=== PATIENT | female | born 1945 | race Caucasian/White ===

== ENCOUNTER → 2020-07-11 13:25 | Outpatient (BNVA) | payer OTHER, SELFPAY | PROVIDERS: PCP Internal Medicine; Visit Provider Urology | DX: N39.0 Urinary tract infection, site not specified (principal) | CPT/HCPCS: 99213 ==

== ENCOUNTER → 2022-09-09 09:51 | Outpatient (BNVA) | payer OTHER, SELFPAY | PROVIDERS: PCP Internal Medicine; Visit Provider Nurse Practitioner Family | DX: N39.0 Urinary tract infection, site not specified (principal) | CPT/HCPCS: 51798 ==

== ENCOUNTER 2023-08-24 10:19 | Outpatient (REF) | payer OTHER, SELFPAY ==
--- NOTE | ~2023-08-24 | US_ITS ---
EXAMINATION: US RETROPERITONEAL COMPLETE (RENAL) CLINICAL INFORMATION: Urinary tract infection, site not specified. COMPARISON: None available. TECHNIQUE: Real-time imaging of the kidneys and bladder. Limited visualization due to bowel gas. FINDINGS: RIGHT KIDNEY: 11.0 x 4.6 x 6.0 cm (SAG x AP x TRV). No hydronephrosis. No renal calculi. Renal cortical thickness is normal. Limited visualization. Right lower pole 1.9 cm parapelvic cyst with benign features. There is no indication for follow-up imaging. Multiple additional smaller parapelvic cysts. LEFT KIDNEY: 11.2 x 5.3 x 4.9 cm (SAG x AP x TRV). Multiple scattered punctate echogenic left renal foci, possibly representing vascular artifact or tiny nonobstructive calculi. No hydronephrosis. Left mid pole 2.5 x 1.8 x 2.2 cm parapelvic cyst with mural calcification. Left lower pole 2.1 cm parapelvic cyst with benign features. There is no indication for follow-up imaging. Multiple additional left renal cysts, multiple of which are parapelvic. BLADDER: Well distended and normal. Bilateral ureteral jets are demonstrated. Prevoid bladder volume is 354 mL. Postvoid bladder volume is 88.7 mL. US/US retroperitoneal comp IMPRESSION: Multiple scattered punctate echogenic left renal foci, possibly representing vascular artifact or tiny nonobstructive calculi. No hydronephrosis. Left renal mid pole 2.5 cm complicated parapelvic cyst. Multiple additional bilateral parapelvic cysts. CT scan recommended for better characterization.
== END 2023-08-24 10:20 | disposition home or self-care (01) ==
LOC: HO.US 10:19
PROVIDERS: PCP Internal Medicine; Visit Provider Nurse Practitioner Family
DX: N39.0 Urinary tract infection, site not specified (principal)
CPT/HCPCS: 76770

== ENCOUNTER 2023-08-31 10:15 | Outpatient (AMB) | payer OTHER, SELFPAY ==
--- NOTE | 2023-08-31 10:37 | A.OFFVIS_ITS ---
Intake Intake Visit Reasons: 1yr follow up/US(set) Intake Note: Patient presents for follow up recurrent uti/ultrasound (imaging 08/24/23) Urology Medications: estradiol cream Blood thinners: none Post void residual :? 126ml's Bit Grinder Required: No Accompanied by: Self / Same As Patient Allergies penicillin V Allergy (Unknown, Verified 08/31/23 23:46) Unknown Medication List - Last Reconciled 08/31/23 by FABIAN Witt-VALENTE atorvastatin 40 mg PO DAILY ciprofloxacin HCl 500 mg PO BID 5 days estradiol 0.01%(0.1mg/gram) pea-sized to urethra 2 times a week; 30 days flu vac 2020 [id number](PF) 60 mcg (15 mcg x 4)/0.5 mL IM levothyroxine 88 mcg PO DAILY nitrofurantoin monohyd/m-cryst 100 mg (Macrobid) 100 mg PO BID 7 days pneumoc 13-balta conj-dip cr(PF) mL IM tobramycin-dexamethasone 0.3-0.1 % (TobraDex) ophthalmic (eye) BEDTIME PRN tretinoin 0.05% topical BEDTIME PRN HPI HPI Comments History of Present Illness Details Lynn is a pleasent 78 year old female who is a patient of Dr. Allred. She has a past medical history of pneumonia, osteopenia, recurrent urinary tract infections, hypothyroidism, GERD, vaginal atrophy, and incomplete bladder emptying. She presents to the office today for a follow-up of her recurrent UTIs and incomplete bladder emptying. Patient reports to be doing and feeling well. She mentions she is getting ready for her trip to [place] on 09/11 where she will stay the next few months. Recent retroperitoneal ultrasound results reviewed with the patient today. Right kidney with no hydronephrosis or renal calculi. Right lower pole 1.9 cm peripelvic cyst with benign features. There is no indication for follow-up imaging per radiology report. Multiple additional smaller peripelvic cysts. Left kidney with multiple scattered punctate echogenic foci possibly representing vascular artifact or tiny nonobstructing calculi. No hydronephrosis. Left mid pole 2.5 x 1.8 x 2.2 cm parapelvic cyst with mural calcification. Left lower pole 2.1 cm parapelvic cyst with benign features. There is no indication for follow-up imaging. Multiple additional left renal cysts, multiple of which are parapelvic. The bladder is well distended and normal. Bilateral ureteral jets are demonstrated. Pre void bladder volume is approximately 350 mL. Postvoid bladder volume is approximately [address] recommendation for better characterization of left renal mid pole 2.5 cm complicated peripelvic cyst noted on imaging. Discussed at length causes and affects of incomplete bladder emptying. She currently denies any bothersome urinary issues or concerns. She denies urinary urgency, urinary frequency, incontinence, hematuria, dysuria, foul smelling urine, changes to urinary stream, flank pain, fever, and or chills. She does report episodes of nocturia. She reports some nights she only gets up 1 time per night to void other times up to 3 times per night. However, she does not find this bothersome at this time. She is happy with her current voiding parameters. In office urinalysis results reviewed with the patient today. PVR 126 mL. Discussed low-dose terazosin for incomplete bladder emptying. However patient discusses at length having had severe dizziness and chest discomfort when previously trialing low-dose terazosin for incomplete bladder emptying in the past. Discussed lifestyle modifications with double voiding to assist with incomplete bladder emptying. She reports compliance with Estrace cream. She reports since her last office visit here approximately 1 year ago she had 1 urinary tract infection. She discusses at length her 's medical issues with his lungs and elevated PSA. She otherwise offers no issues or concerns at this time. [facility] Medical History (Updated 08/31/23 @ 11:21 by FABIAN Witt-VALENTE) Pneumonia Osteopenia UTI (urinary tract infection) Hypothyroidism GERD (gastroesophageal reflux disease) Vaginal atrophy Incomplete emptying of bladder Recurrent UTI Surgical History History of surgery Review of Systems Const All systems reviewed & are unremarkable except as noted in HPI and below Eyes Reports no additional complaints ENT Reports no additional complaints Card Reports no additional complaints Resp Reports as per HPI GI Reports as per HPI Reports as per HPI Musc Reports as per HPI Neuro Reports no additional complaints Psych Reports no additional complaints Endo Reports no additional complaints Altaf/Lymph Reports no additional complaints Aller/Immun Reports no additional complaints Physical Exam Const General: cooperative, healthy appearing, comfortable, alert, awake and well groomed Nutritional Appearance: average body habitus and well nourished Orientation/consciousness: patient oriented x3 Limitations: no limitations HEENT Head: Yes normocephalic Ears: hearing grossly normal bilaterally Eyes General: appearance normal, both eyes and all related structures Neck Neck: Yes normal visual inspection Chest Chest palpation & inspection: normal inspection of the chest Resp Effort & Inspection: normal respiratory effort and no cough Cardio Jugular venous distension: no JVD Neuro General: patient oriented x3, gait normal and moves all extremities Cognition (Neuro): normal cognition Gait exam (Neuro): Normal gait present Psych Appearance: grossly normal and well kempt Mental Status: mental status grossly normal Speech and movement: Normal speech and movement present Affect: normal affect Attitude: cooperative Thought process: Normal thought process present Thought content: Normal thought content present Insight: Good insight present (Psych) Judgement: Good judgement present (Psych) Office Procedures Post Void Residual Post Residual Void Post Void Residual (PVR): 126 [id number] Void Residual by ultrasound Results AMB Urinalysis, Automated UA Leukoctes 0 Nils/uL Last Edit by Chrissy[employer]ya [employer]harma Sherry on 08/31/23 11:06 UA Nitrite Negative Last Edit by [employer] on 08/31/23 11:06 UA Urobilinogen 0.2 mg/dL Last Edit by [employer] on 08/31/23 11:06 UA Protein 0 mg/dL Last Edit by [employer] on 08/31/23 11:06 UA pH 7.0 Last Edit by [employer] on 08/31/23 11:06 UA Blood 0 Rico/uL Last Edit by [employer] on 08/31/23 11:06 UA Specific Holland 1.010 Last Edit by [employer] on 08/31/23 11:06 UA Ketone Negative Last Edit by [employer] on 08/31/23 11:06 UA Bilirubin 0 mg/dL Last Edit by [employer] on 08/31/23 11:06 UA Glucose 0 mg/dL Last Edit by [employer] on 08/31/23 11:06 Results Reviewed Results Reviewed: Laboratory Last Values Urine pH (Auto) 7.0 08/31/23 11:05 Specific Holland (Auto) 1.010 08/31/23 11:05 Urine Protein (Auto) 0 mg/dL 08/31/23 11:05 Glucose (UA)(Auto) 0 mg/dL 08/31/23 11:05 Urine Ketones (Auto) Negative 08/31/23 11:05 Urine Blood (Auto) 0 Rico/uL 08/31/23 11:05 Urine Nitrite (Auto) Negative 08/31/23 11:05 Urine Bilirubin (Auto) 0 mg/dL 08/31/23 11:05 Urine Urobilinogen (Auto) 0.2 mg/dL 08/31/23 11:05 Leukocyte Esterase (Auto) 0 Nils/uL 08/31/23 11:05 Date of Service: 08/24/23 EXAMINATION: US RETROPERITONEAL COMPLETE (RENAL) FINDINGS: RIGHT KIDNEY: 11.0 x 4.6 x 6.0 cm (SAG x AP x TRV). No hydronephrosis. No renal calculi. Renal cortical thickness is normal. Limited visualization. Right lower pole 1.9 cm parapelvic cyst with benign features. There is no indication for follow-up imaging. Multiple additional smaller parapelvic cysts. LEFT KIDNEY: 11.2 x 5.3 x 4.9 cm (SAG x AP x TRV). Multiple scattered punctate echogenic left renal foci, possibly representing vascular artifact or tiny nonobstructive calculi. No hydronephrosis. Left mid pole 2.5 x 1.8 x 2.2 cm parapelvic cyst with mural calcification. Left lower pole 2.1 cm parapelvic cyst with benign features. There is no indication for follow-up imaging. Multiple additional left renal cysts, multiple of which are parapelvic. BLADDER: Well distended and normal. Bilateral ureteral jets are demonstrated. Prevoid bladder volume is 354 mL. Postvoid bladder volume is 88.7 mL. US/US retroperitoneal comp IMPRESSION: Multiple scattered punctate echogenic left renal foci, possibly representing vascular artifact or tiny nonobstructive calculi. No hydronephrosis. Left renal mid pole 2.5 cm complicated parapelvic cyst. Multiple additional bilateral parapelvic cysts. CT scan recommended for better characterization. Assessment & Plan Assessment & Plan (1) Recurrent UTI (urinary tract infection): Code(s): N39.0 - Urinary tract infection, site not specified (2) Complex renal cyst: Code(s): N28.1 - Cyst of kidney, acquired (3) Incomplete emptying of bladder: Code(s): R33.9 - Retention of urine, unspecified Plan In office urinalysis results reviewed with the patient today; as noted above. PVR 126 mL. Discussed at length causes and affects of incomplete bladder emptying. Discussed recent retroperitoneal ultrasound results with the patient today; as noted above. Discussed obtaining CT urogram for further assessment evaluation; patient with upcoming trip to [place] will attempt to obtain prior to departure otherwise will obtain late December when patient returns per patient request BUN and creatinine ordered for imaging. Continue Estrace cream as prescribed. Patient denies any bothersome urinary issues or concerns at this time. Discussed possible near future in office cystoscopy for further assessment evaluation. Discussed attempting to double void to assist with incomplete bladder emptying. Follow-up once imaging is completed; or sooner with any issues, concerns, and or questions. Orders: Orders Blood Urea Nitrogen Today N28.1 - Cyst of kidney, acquired Creatinine Today N28.1 - Cyst of kidney, acquired AMB Post Void Residual by ultrasound Today N39.0 - Urinary tract infection, site not specified CT urogram Today N28.1 - Cyst of kidney, acquired AMB Urinalysis Automated Today Z13.9 - Encounter for screening, unspecified Medications: Refilled nitrofurantoin monohyd/m-cryst 100 mg (Macrobid) must administer with a meal/food 100 mg PO BID 7 days 14 caps 0RF N39.0 - Urinary tract infection, site not specified ciprofloxacin HCl 500 mg PO BID 5 days 10 tabs 0RF estradiol 0.01%(0.1mg/gram) pea-sized to urethra 2 times a week; 30 days 30 grams 2RF N36.2 - Urethral caruncle Patient Instructions: The patient had an opportunity to ask questions regarding the treatment plan. All questions were answered. Physical exam, labs, and imaging were discussed and reviewed in detail. As well as risks, benefits, and discussion of treatment choices. No major barriers to understanding were identified. The patient expressed understanding and agreement with the above treatment plan. The patient was made aware they should contact our office by phone for worsening of their current condition, the appearance of new symptoms, or with any questions or concerns. Compliance is encouraged with any medications and follow up testing that is ordered. It is a privilege to be allowed the opportunity to participate in? your urological care.? Again, if you have any questions or concerns If you have any questions or concerns please do not hesitate to contact me. The office is [phone]. This note is constructed using voice recognition software. While every effort has been made to ensure accuracy agency recruiter errors may have been included. Yours sincerely, FABIAN Witt-VALENTE Coding Level of Care Code Est Pt Level 3 (58473) Diagnoses Recurrent UTI (urinary tract infection) N39.0 Complex renal cyst N28.1 Incomplete emptying of bladder R33.9 CPT Codes Post Residual Void - PVR CPT Code: 25471-Sdyq Void Residual by ultrasound ([id number])
== END 2023-08-31 11:52 | disposition home or self-care (01) ==
PROVIDERS: Visit Provider Nurse Practitioner Family
DX: N39.0 Urinary tract infection, site not specified (principal); N28.1 Cyst of kidney, acquired; R33.9 Retention of urine, unspecified
CPT/HCPCS: 99213

== ENCOUNTER → 2023-08-31 10:15 | Outpatient (BNVA) | payer OTHER, SELFPAY | PROVIDERS: Visit Provider Nurse Practitioner Family | DX: N39.0 Urinary tract infection, site not specified (principal); R33.9 Retention of urine, unspecified; N28.1 Cyst of kidney, acquired | CPT/HCPCS: 51798; 81003 ==

== ENCOUNTER 2024-01-25 10:15 | Outpatient (AMB) | payer OTHER, SELFPAY ==
--- NOTE | 2024-01-25 10:15 | MHC.OFFVIS ---
Intake Visit Reasons: 4m/CT(set) Intake Note: Patient presents for tele visit follow up CT Scan results Urology Medications: estradiol cream, macrobid prn Blood thinners: none Airplane Woodworker Required: No Accompanied by: Self / Same As Patient Allergies penicillin V Allergy (Unknown, Verified 01/25/24 10:35) Unknown Medication List - Last Reconciled 01/25/24 by FITO WittP- atorvastatin 40 mg PO DAILY ciprofloxacin HCl 250 mg (1/2 x 500 mg) PO BID 7 days estradiol 0.01%(0.1mg/gram) pea-sized to urethra 2 times a week; 30 days flu vac 2020 [id number](PF) 60 mcg (15 mcg x 4)/0.5 mL IM ipratropium bromide intranasal levothyroxine 88 mcg PO DAILY pneumoc 13-balta conj-dip cr(PF) mL IM tobramycin-dexamethasone 0.3-0.1 % (TobraDex) ophthalmic (eye) BEDTIME PRN tretinoin 0.05% topical BEDTIME PRN HPI Comments Details: Lynn is a pleasent 78 year old female who is a patient of Dr. Allred. She has a past medical history of pneumonia, osteopenia, recurrent urinary tract infections, hypothyroidism, GERD, vaginal atrophy, and incomplete bladder emptying. She is being followed up on today via telehealth for her recent CT urogram results as previous retroperitoneal ultrasound recommended CT imaging for further assessment evaluation of cysts that were noted. Recent CT urogram results reviewed with the patient today. There is a small 2.4cm benign nonenhancing slightly sepatated and slighlty calcified cyst of the left kidney. There is also a small cyst of the left kidney and small bilateral peripelvic simple renal cysts. There is possibly some abnormal endometrial thickening. Further evaluation is suggested with transvaginal pelvic sonography. In discussion with the patient today she reports having followed up with her MOLDING ENGINEER regarding potential for endometrial thickening and underwent in office biopsy however was unsuccessful and will be undergoing biopsy under sedation in the OR. She discusses at length her 's new diagnosis of prostate cancer Abena scroe 9. He is undergoing treatment at [facility] [place]. She reports since her last office visit here approximately 4 months ago she has experienced one UTI while in [place]. She reports having taken Cipro as prescribed and has not had any issues or concerns since. She currently denies any bothersome urinary issues or concerns. She reports to be compliant with Estrace cream as prescribed. Previous workup has included a retroperitoneal ultrasound noting right kidney with no hydronephrosis or renal calculi. Right lower pole 1.9 cm peripelvic cyst with benign features. There is no indication for follow-up imaging per radiology report. Multiple additional smaller peripelvic cysts. Left kidney with multiple scattered punctate echogenic foci possibly representing vascular artifact or tiny nonobstructing calculi. No hydronephrosis. Left mid pole 2.5 x 1.8 x 2.2 cm parapelvic cyst with mural calcification. Left lower pole 2.1 cm parapelvic cyst with benign features. There is no indication for follow-up imaging. Multiple additional left renal cysts, multiple of which are parapelvic. The bladder is well distended and normal. Bilateral ureteral jets are demonstrated. Pre void bladder volume is approximately 350 mL. Postvoid bladder volume is approximately 90 mL. She denies urinary urgency, urinary frequency, incontinence, hematuria, dysuria, foul smelling urine, changes to urinary stream, flank pain, fever, and or chills. She does report episodes of nocturia however does not find them bothersome. She otherwise offers no issues or concerns at this time. [facility] Medical History Pneumonia Osteopenia UTI (urinary tract infection) Hypothyroidism GERD (gastroesophageal reflux disease) Vaginal atrophy Incomplete emptying of bladder Recurrent UTI Surgical History History of surgery Review of Systems Const All systems reviewed & are unremarkable except as noted in HPI and below Eyes Reports no additional complaints ENT Reports no additional complaints Card Reports no additional complaints Resp Reports as per HPI GI Reports as per HPI Reports as per HPI Musc Reports as per HPI Neuro Reports no additional complaints Psych Reports no additional complaints Endo Reports no additional complaints Altaf/Lymph Reports no additional complaints Aller/Immun Reports no additional complaints Physical Exam Const General: cooperative Resp Effort & Inspection: able to speak in complete sentences Psych Attitude: cooperative Thought process: Normal thought process present Thought content: Normal thought content present Insight: Fair insight present (Psych) Judgement: Fair judgement present (Psych) Telehealth Telehealth Telehealth Platform: Telephone Location of provider rendering services: practice address Location of patient: address on file Patient Identification confirmed using: Name, : Yes Telehealth method: voice only Patient verbally consented to treatment: Yes Patient verbally consented to billing insurance company: Yes Patient informed of any privacy concerns related to visit: Yes Minutes spent on Phone/Video with Pt.: 20 Assessment & Plan Assessment & Plan (1) Complex renal cyst: Code(s): N28.1 - Cyst of kidney, acquired Category: Medical (2) Recurrent UTI (urinary tract infection): Code(s): N39.0 - Urinary tract infection, site not specified Category: Medical Plan Recent CT urogram results reviewed with the patient today; as noted above. Patient currently denies any bothersome urinary issues or concerns. She reports be happy with current voiding parameters. Continue Estrace cream as prescribed. Discussed UTI prevention with D mannose supplement, vitamin-C, increasing fluid intake, behavioral therapy with timed voiding, perineal hygiene and postcoital voiding, and management of constipation with stool softeners and increased fiber intake. Keep scheduled annual follow-up as planned; or sooner with any issues, concerns, and or questions. Medications: Changed From ciprofloxacin HCl 500 mg PO BID 5 days 10 tabs 0RF To ciprofloxacin HCl 250 mg (1/2 x 500 mg) PO BID 7 days 7 tabs 0RF Discontinued nitrofurantoin monohyd/m-cryst 100 mg (Macrobid) must administer with a meal/food Discontinued Reason: Doctor's Order 100 mg PO BID 7 days 14 caps 0RF N39.0 - Urinary tract infection, site not specified Patient Instructions: The patient had an opportunity to ask questions regarding the treatment plan. All questions were answered. Physical exam, labs, and imaging were discussed and reviewed in detail. As well as risks, benefits, and discussion of treatment choices. No major barriers to understanding were identified. The patient expressed understanding and agreement with the above treatment plan. The patient was made aware they should contact our office by phone for worsening of their current condition, the appearance of new symptoms, or with any questions or concerns. Compliance is encouraged with any medications and follow up testing that is ordered. It is a privilege to be allowed the opportunity to participate in? your urological care.? Again, if you have any questions or concerns If you have any questions or concerns please do not hesitate to contact me. The office is [phone]. This note is constructed using voice recognition software. While every effort has been made to ensure accuracy bridges and buildings supervisor errors may have been included. Yours sincerely, FABIAN Witt-VALENTE Coding Level of Care Code Tele Est Pt Level 3 (87816) Diagnoses Complex renal cyst N28.1 Recurrent UTI (urinary tract infection) N39.0
== END 2024-01-25 10:56 | disposition home or self-care (01) ==
LOC: HO.HUSH 10:15
PROVIDERS: PCP Internal Medicine; Visit Provider Nurse Practitioner Family
DX: N28.1 Cyst of kidney, acquired (principal); N39.0 Urinary tract infection, site not specified
CPT/HCPCS: 99213

== ENCOUNTER → 2024-01-25 10:15 | Outpatient (BNVA) | payer OTHER, SELFPAY | PROVIDERS: PCP Internal Medicine; Visit Provider Nurse Practitioner Family ==

== ENCOUNTER 2024-09-05 10:24 | Outpatient (AMB) | payer OTHER, SELFPAY ==
--- NOTE | 2024-09-05 10:27 | MHC.OFFVIS ---
Intake Visit Reasons: 1yr follow up Intake Note: Patient presents for tele visit follow up CT Scan results Urology Medications: estradiol cream Blood thinners: none ALLERGIES:NONE TODAY'S PVR:0ML'S Wine Pasteurizer Required: No Accompanied by: Self / Same As Patient Allergies penicillin V Allergy (Unknown, Verified 09/05/24 10:53) Unknown Medication List - Last Reconciled 09/05/24 by FABIAN Witt-VALENTE atorvastatin 40 mg PO DAILY ciprofloxacin HCl 250 mg (1/2 x 500 mg) PO BID 7 days estradiol 0.01%(0.1mg/gram) pea-sized to urethra 2 times a week; 30 days ipratropium bromide intranasal levothyroxine 88 mcg PO DAILY tobramycin-dexamethasone 0.3-0.1 % (TobraDex) ophthalmic (eye) BEDTIME PRN tretinoin 0.05% topical BEDTIME PRN HPI Comments Details: Lynn is a pleasent 79 year old female who is a patient of Dr. Allred. She has a past medical history of pneumonia, osteopenia, recurrent urinary tract infections, hypothyroidism, GERD, vaginal atrophy, and incomplete bladder emptying. She presents to the office today for follow-up of her recurrent urinary tract infections and lower urinary tract symptoms. In discussion with the patient today she reports to be doing and feeling well. She reports since her last office visit here 8 months ago she has since travel to [place] in [facility] on a prophylactic UTI medication called Uromed. She reports having followed up with her tamping machine operator and has since had surgical intervention for benign cyst that was noted on her ovary. She reports having been told by welding machine assembler to discontinue Estrace cream however she will restart within the next 3 months. She also discusses her 's new diagnosis of prostate cancer and he has undergone radiation treatment. She does note episodes of nocturia however describes these episodes as intermittent. She discusses there are nights that she does not get up to urinate however has other nights where she gets up anywhere between 1-3 times per night. She continues to double void to assist with incomplete bladder emptying. In office urinalysis results reviewed with the patient today. PVR 0 mL. She reports having had 2 urinary tract infections since her last office visit here. She currently denies any UTI like symptoms. She denies incontinence, hematuria, dysuria, foul smelling urine, changes to urinary stream, flank pain, fever, and or chills. Previous workup has included CT urogram 11/21 noting small 2.4 cm benign nonenhancing slightly septated and slightly calcified cyst of the left kidney. There is also a small simple cyst in the left kidney and small bilateral peripelvic cysts. She otherwise offers no issues or concerns at this time. [facility] Medical History Pneumonia Osteopenia UTI (urinary tract infection) Hypothyroidism GERD (gastroesophageal reflux disease) Vaginal atrophy Incomplete emptying of bladder Recurrent UTI Surgical History History of surgery Review of Systems Const All systems reviewed & are unremarkable except as noted in HPI and below Eyes Reports no additional complaints ENT Reports no additional complaints Card Reports no additional complaints Resp Reports as per HPI GI Reports as per HPI Reports as per HPI Musc Reports as per HPI Neuro Reports no additional complaints Psych Reports no additional complaints Endo Reports no additional complaints Altaf/Lymph Reports no additional complaints Aller/Immun Reports no additional complaints Physical Exam Const General: cooperative, healthy appearing, comfortable, alert, awake and well groomed Nutritional Appearance: average body habitus and well nourished Orientation/consciousness: patient oriented x3 Limitations: no limitations HEENT Head: Yes normocephalic Ears: hearing grossly normal bilaterally Eyes General: appearance normal, both eyes and all related structures Neck Neck: Yes normal visual inspection Chest Chest palpation & inspection: normal inspection of the chest Resp Effort & Inspection: normal respiratory effort and no cough Cardio Jugular venous distension: no JVD Neuro General: patient oriented x3, gait normal and moves all extremities Cognition (Neuro): normal cognition Gait exam (Neuro): Normal gait present Psych Appearance: grossly normal and well kempt Mental Status: mental status grossly normal Speech and movement: Normal speech and movement present Affect: normal affect Attitude: cooperative Thought process: Normal thought process present Thought content: Normal thought content present Insight: Good insight present (Psych) Judgement: Good judgement present (Psych) Office Procedures Post Void Residual Post Residual Void Post Void Residual (PVR): 0 90710-[id number] Void Residual by ultrasound Results AMB Urinalysis, Automated UA Leukoctes 15 Nils/uL Last Edit by BRITTNEE Matute on 09/05/24 10:44 UA Nitrite Negative Last Edit by BRITTNEE Matute on 09/05/24 10:44 UA Urobilinogen 0.2 mg/dL Last Edit by Danie Ferrell [facility] on 09/05/24 10:44 UA Protein 0 mg/dL Last Edit by Danie Ferrell [facility] on 09/05/24 10:44 UA pH 6.0 Last Edit by Danie Ferrell [facility] on 09/05/24 10:44 UA Blood 0 Rico/uL Last Edit by Danie Ferrell [facility] on 09/05/24 10:44 UA Specific [place] 1.015 Last Edit by Danie Ferrell [facility] on 09/05/24 10:44 UA Ketone Negative Last Edit by Danie Ferrell [facility] on 09/05/24 10:44 UA Bilirubin 0 mg/dL Last Edit by Danie Ferrell [facility] on 09/05/24 10:44 UA Glucose 0 mg/dL Last Edit by Danie Ferrell [facility] on 09/05/24 10:44 Results Reviewed Results Reviewed: Laboratory Last Values Urine pH (Auto) 6.0 09/05/24 10:43 Specific [place] (Auto) 1.015 09/05/24 10:43 Urine Protein (Auto) 0 mg/dL 09/05/24 10:43 Glucose (UA)(Auto) 0 mg/dL 09/05/24 10:43 Urine Ketones (Auto) Negative 09/05/24 10:43 Urine Blood (Auto) 0 Rico/uL 09/05/24 10:43 Urine Nitrite (Auto) Negative 09/05/24 10:43 Urine Bilirubin (Auto) 0 mg/dL 09/05/24 10:43 Urine Urobilinogen (Auto) 0.2 mg/dL 09/05/24 10:43 Leukocyte Esterase (Auto) 15 Nils/uL 09/05/24 10:43 Assessment & Plan Assessment & Plan (1) Incomplete emptying of bladder: Code(s): R33.9 - Retention of urine, unspecified Category: Medical (2) Complex renal cyst: Code(s): N28.1 - Cyst of kidney, acquired Category: Medical (3) Recurrent UTI (urinary tract infection): Code(s): N39.0 - Urinary tract infection, site not specified Category: Medical Plan In office urinalysis results reviewed with the patient today; as noted above. PVR 0 mL. We discussed at length potential causes of recurrent urinary tract infections. Discussed restarting Estrace cream per recommendation of welding machine assembler Patient does report episodes of nocturia however will continue with surveillance monitoring as patient feels she is self managing symptoms at this time. Continue double voiding to assist with incomplete bladder emptying. She reports be happy with current voiding parameters. Discussed UTI prevention with D mannose supplement, vitamin-C, increasing fluid intake, behavioral therapy with timed voiding, perineal hygiene and postcoital voiding, and management of constipation with stool softeners and increased fiber intake. Follow-up in 1 year with PVR; or sooner with any issues, concerns, and or questions. Orders: Orders AMB Urinalysis Automated Today Z13.9 - Encounter for screening, unspecified Medications: Refilled ciprofloxacin HCl 250 mg (1/2 x 500 mg) PO BID 7 days 7 tabs 0RF estradiol 0.01%(0.1mg/gram) pea-sized to urethra 2 times a week; 30 days 30 grams 2RF N36.2 - Urethral caruncle Patient Instructions: The patient had an opportunity to ask questions regarding the treatment plan. All questions were answered. Physical exam, labs, and imaging were discussed and reviewed in detail. As well as risks, benefits, and discussion of treatment choices. No major barriers to understanding were identified. The patient expressed understanding and agreement with the above treatment plan. The patient was made aware they should contact our office by phone for worsening of their current condition, the appearance of new symptoms, or with any questions or concerns. Compliance is encouraged with any medications and follow up testing that is ordered. It is a privilege to be allowed the opportunity to participate in? your urological care.? Again, if you have any questions or concerns If you have any questions or concerns please do not hesitate to contact me. The office is [phone]. This note is constructed using voice recognition software. While every effort has been made to ensure accuracy animal trapper errors may have been included. Yours sincerely, CESAR Witt Coding Level of Care Code Est Pt Level 3 (93169) Complex EM visit Add On G2211 Diagnoses Incomplete emptying of bladder R33.9 Complex renal cyst N28.1 Recurrent UTI (urinary tract infection) N39.0 CPT Codes Post Residual Void - PVR CPT Code: 00473-Iygh Void Residual by ultrasound ([id number])
== END 2024-09-05 10:55 | disposition home or self-care (01) ==
PROVIDERS: PCP Internal Medicine; Visit Provider Nurse Practitioner Family
DX: R33.9 Retention of urine, unspecified (principal); N28.1 Cyst of kidney, acquired; N39.0 Urinary tract infection, site not specified; Z13.9 Encounter for screening, unspecified
CPT/HCPCS: 99213

== ENCOUNTER → 2024-09-05 10:24 | Outpatient (BNVA) | payer OTHER, SELFPAY | PROVIDERS: PCP Internal Medicine; Visit Provider Nurse Practitioner Family | DX: R33.9 Retention of urine, unspecified (principal); N28.1 Cyst of kidney, acquired; N39.0 Urinary tract infection, site not specified | CPT/HCPCS: 51798; 81003 ==

== ENCOUNTER 2025-09-05 10:30 | Outpatient (AMB) | payer OTHER, SELFPAY ==
--- NOTE | 2025-09-05 10:34 | MHC.OFFVIS ---
Intake Visit Reasons: 1y/PVR/UA Intake Note: Patient is present for 1Y/PVR/UA Urology Medication:ESTRADIOL Antibiotic Allergy:PENICILLIN V Blood Thinner:NONE LAST PVR: OML'S TODAY'S PVR:0ML'S Watch Parts Grinder Required: No Allergies penicillin V Allergy (Unknown, Verified 09/05/25 13:03) Unknown Medication List - Last Reconciled 09/05/25 by FABIAN Witt-VALENTE atorvastatin 40 mg PO DAILY ciprofloxacin HCl 250 mg (1/2 x 500 mg) PO BID 7 days estradiol 0.01%(0.1mg/gram) pea-sized to urethra 2 times a week; 30 days ipratropium bromide intranasal levothyroxine 88 mcg PO DAILY tobramycin-dexamethasone 0.3-0.1 % (TobraDex) ophthalmic (eye) BEDTIME PRN tretinoin 0.05% topical BEDTIME PRN HPI Comments Details: Lynn is a pleasant 80 year old female who is a patient of Dr. Allred. She has a past medical history of pneumonia, osteopenia, recurrent urinary tract infections, hypothyroidism, GERD, vaginal atrophy, and incomplete bladder emptying. She presents to the office today for follow-up of her recurrent urinary tract infections and lower urinary tract symptoms. In discussion with the patient today she reports to be doing and feeling well. She reports since her last office visit here 12 months ago she has had 1 urinary tract infection which was recently in July. She reports she typically spends her winter months in [place] and had to utilize prophylactic antibiotic that was prescribed to her since last office visit. She does report compliance with Estrace cream however we did discuss the proper use. In office urinalysis results reviewed with the patient today. She currently denies any bothersome urinary issues. She reports last month when she experienced her urinary tract infection she also experienced a cold. However, has since been feeling better. She continues to double void to assist with incomplete bladder emptying. PVR 0 mL. She currently denies any UTI like symptoms. She denies incontinence, hematuria, dysuria, foul smelling urine, changes to urinary stream, flank pain, fever, and or chills. Previous workup has included CT urogram 11/21 noting small 2.4 cm benign nonenhancing slightly septated and slightly calcified cyst of the left kidney. There is also a small simple cyst in the left kidney and small bilateral peripelvic cysts. She otherwise offers no issues or concerns at this time. [facility] Medical History Pneumonia Osteopenia UTI (urinary tract infection) Hypothyroidism GERD (gastroesophageal reflux disease) Vaginal atrophy Incomplete emptying of bladder Recurrent UTI Surgical History History of surgery Review of Systems Const All systems reviewed & are unremarkable except as noted in HPI and below Eyes Reports no additional complaints ENT Reports no additional complaints Card Reports no additional complaints Resp Reports as per HPI GI Reports as per HPI Reports as per HPI Musc Reports as per HPI Neuro Reports no additional complaints Psych Reports no additional complaints Endo Reports no additional complaints Altaf/Lymph Reports no additional complaints Aller/Immun Reports no additional complaints Physical Exam Const General: cooperative, healthy appearing, comfortable, no acute distress, well developed, alert, awake and well groomed Nutritional Appearance: average body habitus and well nourished Orientation/consciousness: patient oriented x3 Limitations: no limitations HEENT Head: Yes normocephalic Ears: hearing grossly normal bilaterally Eyes General: appearance normal, both eyes and all related structures Neck Neck: Yes normal visual inspection Chest Chest palpation & inspection: normal inspection of the chest Resp Effort & Inspection: normal respiratory effort and no cough Cardio Jugular venous distension: no JVD Neuro General: patient oriented x3, gait normal and moves all extremities Cognition (Neuro): normal cognition Gait exam (Neuro): Normal gait present Psych Appearance: grossly normal and well kempt Mental Status: mental status grossly normal Speech and movement: Normal speech and movement present Affect: normal affect Attitude: cooperative Thought process: Normal thought process present Thought content: Normal thought content present Insight: Good insight present (Psych) Judgement: Good judgement present (Psych) Office Procedures Post Void Residual Post Residual Void Post Void Residual (PVR): 0 [id number]-[id number] Void Residual by ultrasound Results AMB Urinalysis, Automated UA Leukoctes 0 Nils/uL Last Edit by BRITTNEE Matute on 09/05/25 10:51 UA Nitrite Negative Last Edit by BRITTNEE Matute on 09/05/25 10:51 UA Urobilinogen 0.2 mg/dL Last Edit by BRITTNEE Matute on 09/05/25 10:51 UA Protein 0 mg/dL Last Edit by BRITTNEE Matute on 09/05/25 10:51 UA pH 7.0 Last Edit by BRITTNEE Matute on 09/05/25 10:51 UA Blood 0 Rico/uL Last Edit by BRITTNEE Matute on 09/05/25 10:51 UA Specific [place] 1.010 Last Edit by BRITTNEE Matute on 09/05/25 10:51 UA Ketone Negative Last Edit by BRITTNEE Matute on 09/05/25 10:51 UA Bilirubin 0 mg/dL Last Edit by BRITTNEE Matute on 09/05/25 10:51 UA Glucose 0 mg/dL Last Edit by BRITTNEE Matute on 09/05/25 10:51 Results Reviewed Results Reviewed: Laboratory Last Values Urine pH (Auto) 7.0 09/05/25 10:41 Specific [place] (Auto) 1.010 09/05/25 10:41 Urine Protein (Auto) 0 mg/dL 09/05/25 10:41 Glucose (UA)(Auto) 0 mg/dL 09/05/25 10:41 Urine Ketones (Auto) Negative 09/05/25 10:41 Urine Blood (Auto) 0 Rico/uL 09/05/25 10:41 Urine Nitrite (Auto) Negative 09/05/25 10:41 Urine Bilirubin (Auto) 0 mg/dL 09/05/25 10:41 Urine Urobilinogen (Auto) 0.2 mg/dL 09/05/25 10:41 Leukocyte Esterase (Auto) 0 Nils/uL 09/05/25 10:41 Assessment & Plan Assessment & Plan (1) Complex renal cyst: Code(s): N28.1 - Cyst of kidney, acquired Category: Medical (2) Incomplete emptying of bladder: Code(s): R33.9 - Retention of urine, unspecified Category: Medical (3) Recurrent UTI (urinary tract infection): Code(s): N39.0 - Urinary tract infection, site not specified Category: Medical Plan In office urinalysis results with the patient today; as noted above. PVR 0 mL She currently denies any bothersome urinary issues or concerns. She reports be happy with current voiding parameters. We did discuss potential causes of urinary tract infections as well as further treatment options and risks and benefits of these treatment options. All questions were answered. Refill provided on antibiotic therapy as well as Estrace cream. We did discussed proper use of Estrace cream. We discussed obtaining surveillance imaging of renal cysts however she does not feel this is necessary at this time. Will continue with surveillance monitoring. Discussed UTI prevention with D mannose supplement, vitamin-C, increasing fluid intake, behavioral therapy with timed voiding, perineal hygiene and postcoital voiding, and management of constipation with stool softeners and increased fiber intake. Follow-up in 1 year with PVR; or sooner with any issues, concerns, and or questions. Orders: Orders AMB Urinalysis Automated Today Z13.9 - Encounter for screening, unspecified Medications: Refilled ciprofloxacin HCl 250 mg (1/2 x 500 mg) PO BID 7 tabs 3RF 7 days estradiol 0.01%(0.1mg/gram) pea-sized to urethra 2 times a week; 30 grams 2RF 30 days N36.2 - Urethral caruncle Patient Instructions: The patient had an opportunity to ask questions regarding the treatment plan. All questions were answered. Physical exam, labs, and imaging were discussed and reviewed in detail. As well as risks, benefits, and discussion of treatment choices. No major barriers to understanding were identified. The patient expressed understanding and agreement with the above treatment plan. The patient was made aware they should contact our office by phone for worsening of their current condition, the appearance of new symptoms, or with any questions or concerns. Compliance is encouraged with any medications and follow up testing that is ordered. It is a privilege to be allowed the opportunity to participate in? your urological care.? Again, if you have any questions or concerns If you have any questions or concerns please do not hesitate to contact me. The office is [phone]. This note is constructed using voice recognition software. While every effort has been made to ensure accuracy it risk analyst errors may have been included. Yours sincerely, CESAR Witt Coding Level of Care Code Est Pt Level 4 (10883) Diagnoses Complex renal cyst N28.1 Incomplete emptying of bladder R33.9 Recurrent UTI (urinary tract infection) N39.0 CPT Codes Post Residual Void - PVR CPT Code: 30139-Kvsa Void Residual by ultrasound ([id number])
== END 2025-09-05 11:26 | disposition home or self-care (01) ==
LOC: HO.HUSH 10:30
PROVIDERS: PCP Internal Medicine; Visit Provider Nurse Practitioner Family
DX: N28.1 Cyst of kidney, acquired (principal); R33.9 Retention of urine, unspecified; N39.0 Urinary tract infection, site not specified; Z13.9 Encounter for screening, unspecified
CPT/HCPCS: 99214

== ENCOUNTER → 2025-09-05 10:30 | Outpatient (BNVA) | payer OTHER, SELFPAY | PROVIDERS: PCP Internal Medicine; Visit Provider Nurse Practitioner Family | DX: N28.1 Cyst of kidney, acquired (principal); N39.0 Urinary tract infection, site not specified; N36.2 Urethral caruncle | CPT/HCPCS: 51798; 81003 ==